=== PATIENT | male | born 1990 | race Two or more races ===

== ENCOUNTER 2018-03-31 19:30 | Emergency (ER) | payer OTHER ==
[~2018-03-31] VITALS: Ht 182.9 cm; Wt 180.5 kg
[2018-03-31 23:40] VITALS: BP 112/84
== END 2018-04-01 01:01 | disposition home or self-care (01) ==
LOC: ER 19:30
DX: F20.9 Schizophrenia, unspecified (principal); Z76.0 Encounter for issue of repeat prescription; Z88.8 Allergy status to other drugs, medicaments and biological substances

== ENCOUNTER 2018-05-05 16:54 | Emergency (ER) | payer OTHER ==
[~2018-05-05] VITALS: Ht 182.9 cm; Wt 181.4 kg
[2018-05-05 17:33] VITALS: BP 127/72
== END 2018-05-05 19:15 | disposition home or self-care (01) ==
LOC: ER 17:00
DX: F20.9 Schizophrenia, unspecified (principal); Z76.0 Encounter for issue of repeat prescription; Z88.4 Allergy status to anesthetic agent

== ENCOUNTER 2018-10-23 15:37 | Emergency (ER) | payer MEDICAID ==
[~2018-10-23] VITALS: Ht 182.9 cm; Wt 204.1 kg
[2018-10-23] MEDS ORDERED: QUEtiapine FUMARATE 100 MG TAB PO ONE (16:15)
[2018-10-23] MEDS ORDERED: OLANZapine 5 MG TAB PO ONE (16:15)
[2018-10-24 03:04] VITALS: BP 143/75
== END 2018-10-24 03:33 | disposition home or self-care (01) ==
LOC: ER 15:41
DX: F20.9 Schizophrenia, unspecified (principal); F31.9 Bipolar disorder, unspecified; Z88.8 Allergy status to other drugs, medicaments and biological substances